=== PATIENT | male | born 1965 | race Caucasian/White ===

== ENCOUNTER 2017-01-29 00:06 | Emergency (ER) | payer BC, OTHER ==
[~2017-01-29] VITALS: Ht 175.3 cm; Wt 83.9 kg
[~2017-01-29 00:06] MED LIST: IBUP200C5 PO
[2017-01-29 00:25] VITALS: BP 141/97
--- NOTE | 2017-01-29 00:25 | NUR ---
PT IS AN OTB BIBA#[id number], PT C/O LEFT FLANK PAIN X 2 MONTHS. PT AOX3 RR EVEN AND UNLABORED. NO SO NOTED. NAD NOTED. NO NVD AT THIS TIME. PT GOWNED AND PLACED ON MONITOR. PT NOT DIAPHORETIC. DR. HODGES AT BEDSIDE FOR EVAL.
--- NOTE | 2017-01-29 01:10 | NUR ---
Patient discharged to home in stable condition under lapd custody. Written and verbal after care instructions given. Patient verbalizes understanding of instruction PT ambulatory with a steady gait
== END 2017-01-29 01:12 ==
LOC: ER 00:07
DX: N20.0 Calculus of kidney (principal); F19.10 Other psychoactive substance abuse, uncomplicated; I10 Essential (primary) hypertension; Z98.890 Other specified postprocedural states
CPT/HCPCS: 99283; A4606; Z7610